=== PATIENT | female | born 1940 | race Caucasian/White ===

== ENCOUNTER 2023-09-22 18:02 | Inpatient (IN) | payer MEDICARE, BC, SELFPAY ==
[2023-09-22 09:14] VITALS: BP 133/75
[2023-09-22] MEDS: PEPCID 20 MG IV (10:10)
[2023-09-22] MEDS: OMNIPAQUE 50 ML PO (10:10)
[2023-09-22] MEDS: TORADOL 15 MG IV (10:10)
[2023-09-22 10:26] LABS: % Basophils 0.3 % (0-2); % Eosinophils 0.1 % (0-6); % Immature Granulocytes 0.3 % (0-0.5); % Lymphocytes 13.2 % (20.5-51.1); % Monocytes 5.7 % (1.7-9.3); % Neutrophils 80.4 % (42.2-75.2); Absolute Monocytes 0.4 10^3/uL (0.1-0.6); Absolute Neutrophils 6.2 10^3/uL (1.4-6.5); Hematocrit 34.4 % (37.0-47.0); Hemoglobin 11.5 g/dL (12.0-16.0); Mean Corp Hgb Conc. 33.4 g/dL (33.0-37.0); Mean Corpuscular Hgb 28.2 pg (27.0-31.0); Mean Corpuscular Volume 84.3 fL (81.0-99.0); Mean Platelet Volume 9.4 fL (7.4-10.4); Nucleated Red Blood Cells % 0 %; Platelet Count 240 10^3/uL (130-400); Red Blood Cell Count 4.08 10^6/uL (4.20-5.40); Red Cell Dist. Width 14.2 % (11.5-14.5); White Blood Cell Count 7.7 10^3/uL (4.8-10.8)
[2023-09-22 10:35] LABS: ALT (SGPT) 35 U/L (0-35); AST (SGOT) 34 U/L (14-36); Albumin 4.2 g/dl (3.5-5.0); Alkaline Phosphatase 91 U/L (38-126); Blood Urea Nitrogen 37 mg/dl (7-17); Calcium 9.3 mg/dl (8.4-10.2); Carbon Dioxide 19 mmol/L (22-30); Chloride 109 mmol/L (98-107); Glucose 99 mg/dl (70-99); Lipase 313 U/L (23-300); Potassium 4.4 mmol/L (3.5-5.1); Sodium 135 mmol/L (135-145); Total Bilirubin 0.5 mg/dl (0.2-1.3); Total Protein 7.1 g/dl (6.3-8.2); eGFR 49.24
--- NOTE | 2023-09-22 11:00 | ED.GENMED ---
History of Present Illness
<Derek Patrick Jr., PA-C - Last Filed: 09/22/23 17:39>
General
Chief Complaint: Abdominal Pain
Source: patient and family
Exam Limitations: none
Time Seen by Provider: 09/22/23 09:37
Nursing documentation reviewed up to this point in time: agreed with
Travel History
Have you had any contact with someone who has COVID-19?: No
Do you have any symptoms of coronavirus? Fever > 100 degrees, chills, cough, shortness of breath, sore throat, loss of taste or smell, muscle aches, or headache?: No
History of Present Illness
History of Present Illness:
83-year-old female with past medical history of multiple bowel obstructions in the past status post partial colectomy, ileal conduit previous stroke presenting to the emergency department today with concerns of worsening left-sided lower abdominal
pain and decreasing bowel movements but having also some intermittent loose stool over the past week or so. Has had increasing reflux symptoms denies specific vomiting has had some mild nausea has been able to tolerate by mouth.
Review of Systems
<Derek Patrick Jr., PA-C - Last Filed: 09/22/23 17:39>
Review of Systems
Allergies reviewed?: Yes
All Other Systems: ROS reviewed and negative except as documented in HPI and ROS
Phy Exam
<Derek Patrick Jr., PA-C - Last Filed: 09/22/23 17:39>
Physical Exam
Physical Exam:
GENERAL: Alert , in no apparent distress
EYE: pupils equal and reactive
NECK: Supple, no significant adenopathy.
ENT: o/p clr, mmm.
CARDIAC: Regular rate and rhythm .
LUNGS: Clear breath sounds bilaterally, no acute respiratory distress, no wheezes/rales/rhonchi
ABDOMEN: Left-sided abdominal pain no r/g, no cvat
NEUROLOGICAL: Alert and oriented, no focal neuro deficits
SKIN: Warm and dry, skin intact.
MUSCULOSKELETAL: No edema, well perfused.
PSYCH: Normal and appropriate interaction.
Course
<Derek Patrick Jr., PA-C - Last Filed: 09/22/23 17:39>
Orders/Labs/Results
Orders:
Orders
09/22/23 09:53
CT Abd/pel (oral only)-[facility] Only Urgent
Comment:
Reason For Exam: previous partial saúl, iileal conduit, left sided
Iohexol [Omnipaque] See Protocol PO NOW STA
09/22/23 09:54
Famotidine [Pepcid] 20 mg IV NOW STA
Ketorolac [Toradol] 15 mg IV NOW STA
09/22/23 10:01
Complete Blood Count/With Diff Urgent
Comprehensive Metabolic Panel Urgent
Lipase Urgent
09/22/23 15:38
Urinalysis Reflex To Culture Urgent
Date Specimen was Collected: 09/22/23
Time Specimen was Collected: 15:36
Urine Microscopic Reflex Cult Urgent
Urine Culture Urgent
RUBIA Source: U
Specimen Description:
Date Specimen was Collected: 09/22/23
Time Specimen was Collected: 15:36
09/22/23 16:45
Cefepime HCl [Maxipime] 1,000 mg IV NOW STA
09/22/23 16:54
Sterile Water [Sterile Water For Injection] 10 ml .ROUTE .[facility]-MED ONE
09/22/23 17:22
Admit/Transfer Patient As Directed
Co-Sign Provider:
Level of Care: Inpatient admission
Assign to:: Medical/Surgical
Physician / Group: Hospitalist
Diagnosis: UTI, hydronephrosis
Reason for Hospitalization: UTI, L hydronephrosis
Expected length of stay greater than two midnights?: Yes
ELOS- Estimated Length of Stay in days: 2
I certify the patient meets the requirements for IP care: Yes
Code Status As Directed
Resuscitation Status: Full Code
LevoFLOXacin 500 MG/100 ML [Levaquin] 500 mg in 100 ml IV NOW
Abnormal Lab Results
09/22/23 09/22/23
10:01 15:38
RBC 4.08 L 10^6/uL
(4.20-5.40)
Hgb 11.5 L g/dL
(12.0-16.0)
Hct 34.4 L %
(37.0-47.0)
Absolute Lymphs (auto) 1.0 L 10^3/uL
(1.2-3.4)
Neutrophils % 80.4 H %
(42.2-75.2)
Lymphocytes % 13.2 L %
(20.5-51.1)
Chloride 109 H mmol/L
(98-107)
Carbon Dioxide 19 L mmol/L
(22-30)
BUN 37 H mg/dl
(7-17)
Creatinine 1.1 H mg/dL
(0.6-1.0)
Lipase 313 H U/L
(23-300)
Ur Occult Blood Reflex Trace A
(Negative)
Leukocyte Esterase Rfl Trace A
(Negative)
Urine RBC 3-6 A /HPF
(0-2)
Urine WBC (Reflex) 11-15 A /HPF
(0-5)
Urine Bacteria (Reflex) Many A
(Negative)
09/22/23 10:01
09/22/23 10:01
Vital Signs
Initial and Last Documented VS:
Initial Vital Signs
Temp Pulse Resp BP Pulse Ox
97.8 F 97 18 133/75 100
09/22/23 09:14 09/22/23 09:14 09/22/23 09:14 09/22/23 09:14 09/22/23 09:14
Last Documented Vital Signs
Temp Pulse Resp BP Pulse Ox
97.8 F 90 16 156/68 100
09/22/23 13:33 09/22/23 13:33 09/22/23 13:33 09/22/23 13:33 09/22/23 13:33
<Eduardo Chaudhry MD - Last Filed: 09/22/23 15:54>
Orders/Labs/Results
Orders:
Orders
09/22/23 09:53
CT Abd/pel (oral only)-[facility] Only Urgent
Comment:
Reason For Exam: previous partial saúl, iileal conduit, left sided
Iohexol [Omnipaque] See Protocol PO NOW STA
09/22/23 09:54
Famotidine [Pepcid] 20 mg IV NOW STA
Ketorolac [Toradol] 15 mg IV NOW STA
09/22/23 10:01
Complete Blood Count/With Diff Urgent
Comprehensive Metabolic Panel Urgent
Lipase Urgent
09/22/23 15:38
Urinalysis Reflex To Culture Urgent
Date Specimen was Collected: 09/22/23
Time Specimen was Collected: 15:36
Urine Microscopic Reflex Cult Urgent
Urine Culture Urgent
RUBIA Source: U
Specimen Description:
Date Specimen was Collected: 09/22/23
Time Specimen was Collected: 15:36
09/22/23 16:45
Cefepime HCl [Maxipime] 1,000 mg IV NOW STA
09/22/23 16:54
Sterile Water [Sterile Water For Injection] 10 ml .ROUTE .[facility]
09/22/23 17:22
Admit/Transfer Patient As Directed
Co-Sign Provider:
Level of Care: Inpatient admission
Assign to:: Medical/Surgical
Physician / Group: Hospitalist
Diagnosis: UTI, hydronephrosis
Reason for Hospitalization: UTI, L hydronephrosis
Expected length of stay greater than two midnights?: Yes
ELOS- Estimated Length of Stay in days: 2
I certify the patient meets the requirements for IP care: Yes
Code Status As Directed
Resuscitation Status: Full Code
LevoFLOXacin 500 MG/100 ML [Levaquin] 500 mg in 100 ml IV NOW
Abnormal Lab Results
09/22/23 09/22/23
10:01 15:38
RBC 4.08 L 10^6/uL
(4.20-5.40)
Hgb 11.5 L g/dL
(12.0-16.0)
Hct 34.4 L %
(37.0-47.0)
Absolute Lymphs (auto) 1.0 L 10^3/uL
(1.2-3.4)
Neutrophils % 80.4 H %
(42.2-75.2)
Lymphocytes % 13.2 L %
(20.5-51.1)
Chloride 109 H mmol/L
(98-107)
Carbon Dioxide 19 L mmol/L
(22-30)
BUN 37 H mg/dl
(7-17)
Creatinine 1.1 H mg/dL
(0.6-1.0)
Lipase 313 H U/L
(23-300)
Ur Occult Blood Reflex Trace A
(Negative)
Leukocyte Esterase Rfl Trace A
(Negative)
Urine RBC 3-6 A /HPF
(0-2)
Urine WBC (Reflex) 11-15 A /HPF
(0-5)
Urine Bacteria (Reflex) Many A
(Negative)
09/22/23 10:01
09/22/23 10:01
Vital Signs
Initial and Last Documented VS:
Initial Vital Signs
Temp Pulse Resp BP Pulse Ox
97.8 F 97 18 133/75 100
09/22/23 09:14 09/22/23 09:14 09/22/23 09:14 09/22/23 09:14 09/22/23 09:14
Last Documented Vital Signs
Temp Pulse Resp BP Pulse Ox
97.8 F 90 16 156/68 100
09/22/23 13:33 09/22/23 13:33 09/22/23 13:33 09/22/23 13:33 09/22/23 13:33
<Derek Patrick Jr., PA-C - Last Filed: 09/22/23 17:39>
MDM/Problems Addressed
MDM/Problems Addressed:
83-year-old female presenting to the emergency department today with concerns of abdominal discomfort mainly to the left side of the abdomen with decreasing bowel movements and associated nausea. History of multiple bowel obstructions does have
reproducible tenderness to left further assessment patient was given oral contrast due to her previous colon surgery also has IV contrast allergy. CT scan showing hydronephrosis. Her doctor at [facility] was contacted and it appeared
that this is not chronic and she previously did not have hydronephrosis on most recent scan which was 9 months ago. No significant white count here creatinine level is 1.1 baseline 0.6-0.7 at baseline BUN slightly elevated. Additionally
urinalysis potentially consistent with UTI. Concerning this patient will be admitted for IV antibiotics and further monitoring. Patient was specifically requesting Levaquin as this is previously worked well for UTIs in the past. Urology was made
aware about the case as well.
<Derek Patrick Jr., PA-C - Last Filed: 09/22/23 17:39>
*Critical Care Note
Total Time (30-74mins, 75-104mins- exclusive of procedures): Not Applicable
ED Attending Note
<Derek Patrick Jr., PA-C - Last Filed: 09/22/23 17:39>
-
Portions of this chart may have been created with voice recognition software.� Occasional wrong word or��sound alike� substitutions may have occurred due to the inherent limitations of voice recognition software.
<Eduardo Chaudhry MD - Last Filed: 09/22/23 15:54>
ED Attending Note
Patient seen and examined by attending physician: Yes
I performed the substantive portion of visit, reviewed & personally made and approve the management plan that is documented in note by myself or CARISSA.: Yes
ED Attending Note:
Patient with 2 weeks of abdominal pain mostly lower abdomen with some back pain. Some history of constipation. Symptoms have progressed the last 2 weeks. No fever no vomiting.
On exam patient is nontoxic in no distress. No CVA tenderness. No distress. Abdomen is soft. Ileal conduit functioning well. Very minimal suprapubic tenderness. No rebound or guarding no mass or hernia.
Labs all reviewed and stable except for a minimal lipase elevation. CT reviewed with hydronephrosis but no obstructing kidney stone.
If the hydronephrosis is new this may be the cause of her back pain which is mostly left-sided. Could either be a nonvisual stone or reflux. Urinalysis pending. Trying to get CT reports from [facility]. Also try to contact her primary
urologist. If this has all been old and stable consideration for other etiology of her symptoms including pancreatic CA would be on the list. However this were does not warrant inpatient management and would be worked up as an outpatient.
Discharge Plan
Departure
Patient Disposition: Admit
Date of Disposition: 09/22/23
Time of Disposition: 17:39
Admit to: Med/Surg
Admit to doctor: Harvey
Presentation/result/management discussed w/ accepting MD/DO: Hospitalist
Patient with high blood pressure during this ER visit?: No
Condition: Good
Covid-19: Not Applicable
Discharge Problem:
Hydronephrosis, Acute UTI
Referrals:
Ivan Birmingham DO [Family Provider] -
Interventions
Interventions:
*Risk Screen - Suicide Last Done: 09/22/23 09:14
*General Assessment Last Done: 09/22/23 09:14
*Neglect/Abuse Screening Last Done: 09/22/23 09:14
ED- Fall Risk Assessment Last Done: 09/22/23 12:30
XR-Zwttwe-Ncsjuicqng Assessment Last Done: 09/22/23 12:30
[2023-09-22 13:33] VITALS: BP 156/68
[2023-09-22 15:52] LABS: Urine Albumin Negative (Neg - Trace); Urine Bilirubin Negative (Negative); Urine Character Clear (Clear); Urine Color Yellow; Urine Glucose Negative (Negative); Urine Ketone Negative (Negative); Urine Leukocyte Trace (Negative); Urine Nitrite Negative (Negative); Urine Occult Blood Trace (Negative); Urine Urobilinogen Negative (Neg - 1+)
[2023-09-22 15:57] LABS: Urine Squamous Cell 0-2 /LPF (Few)
[2023-09-22 15:58] LABS: Urine Bacteria Many (Negative)
--- NOTE | 2023-09-22 17:31 | HPS.HSE ---
Family Physician
-
Family Physician: Ivan Birmingham
Chief Complaint
-
L flank pain
History of Present Illness
83yo F with PMHx of CVA, hyponatremia, urinary bladder CA s/p ileal loop and bladder resection 2.5 years before this admission, done in [facility], Hx of UTI, chreonic L flank pain came with worsening L flank pain. CT found L hydronephrosis, as per
urology - due to ileal loop - might need perc nephrostomy if condition worsens. Concern for UTI.
Medical History
Past Medical History
Past Medical History: Reports Other
Additional Past Medical History:
See HPI
Past Surgical History: Reports Cholecystectomy and Other
Additional Past Surgical History:
See HPI
Social History
Tobacco: Former Smoker
Alcohol: None
Drug: None
Family History
Family History: Not pertinent
Allergies / Home Medications
Allergies reflects when Allergies were last updated in [employer].
Home Medications with original date entered in [employer]
Allergy/Medication List:
Allergies
Allergy/AdvReac Type Severity Reaction Status Date / Time
cephalexin Allergy Unknown Hives Verified 09/22/23 09:22
hyoscyamine [From Uribel] Allergy Unknown Unknown Verified 09/22/23 09:22
Iodinated Contrast Media Allergy Unknown Hives Verified 09/22/23 09:22
methenamine [From Uribel] Allergy Unknown Unknown Verified 09/22/23 09:22
methylene blue [From Uribel] Allergy Unknown Unknown Verified 09/22/23 09:22
nitrofurantoin Allergy Unknown Unknown Verified 09/22/23 09:22
[From Macrodantin]
salicylates [From Uribel] Allergy Unknown Unknown Verified 09/22/23 09:22
sodium phosphate Allergy Unknown Unknown Verified 09/22/23 09:22
[From Uribel]
sulfamethoxazole Allergy Unknown Unknown Verified 09/22/23 09:22
[From Bactrim]
trimethoprim [From Bactrim] Allergy Unknown Unknown Verified 09/22/23 09:22
Review of Systems
-
A 12 point ROS was completed and negative except as noted: Yes
: Reports See HPI
Physical Exam
Vital Signs
Vital Signs
Temp Pulse Resp BP Pulse Ox
97.8 F 90 16 156/68 100
09/22/23 13:33 09/22/23 13:33 09/22/23 13:33 09/22/23 13:33 09/22/23 13:33
Physical Exam
General: Well Developed, Well Nourished and No Apparent Distress
HEENT: NormoCephalic, Anicteric and Moist mucous membranes
Respiratory: Clear; No Wheezes, Rales or Rhonchi
Cardiac: S1/S2 and Regular Rhythm
GI: Soft, Non Tender and Non Distended
Genito-urinary: Clear Urine, Costovertebral angle tend (L) and Other (diverting urostomy bag with yellow urine)
Musculoskeletal: No Clubbing, No Cyanosis and No Edema
Skin: Warm; No Dry or Rash
Neuro: Awake, Alert, Oriented and AO x 3
Hematologic/Lymphatic: No Lymphadenopathy
Psych: Calm
Laboratory Results
-
09/22/23 10:01
09/22/23 10:01
Laboratory Results
Total Bilirubin 0.5 mg/dl (0.2-1.3) 09/22/23 10:01
AST 34 U/L (14-36) 09/22/23 10:01
ALT 35 U/L (0-35) 09/22/23 10:01
Alkaline Phosphatase 91 U/L (38-126) 09/22/23 10:01
Lipase 313 U/L (23-300) H 09/22/23 10:01
Data Reviewed
-
Diagnostic Radiology: Report Reviewed by me
Impression/Plan
-
#UTI, complicated with L hydro
#Hx of urinary bladder CA s/p resection and ileal loop
Hx of Levaquin for previous UTI without documentation of infection. WIll start Merrem (Keflex alergy) to cover Pseudomonas pecning Ucx and Bcx
Utology consult
If worsening Cr or infection - IRAD for perc nephrostomy
#Cr elevation vs JAREN
Unclear baseline
IVF and follow BMP
#Diarrhea with PMHx of chronic constipation
Can be 2/2 laxatives
with PMHx of Abx - check for c.diff
Probiotics
#Hx of CVA
cont ASA
#Chronic hyponatremia
follow Sodium
continue previously established as outpatient fluid restriction of 50Oz to limit free water
Use NS for hydration
DVT ppx hep
Full code
Encounter reuired high level of complexity for medical decision making
[2023-09-22] MEDS: LEVAQUIN 100 IV (17:38)
[2023-09-22 17:43] VITALS: BP 142/63
--- NOTE | 2023-09-22 18:44 | EDRN ---
Patient started to have red cheeks during levaquin infusion. Levaquin infusion stopped. Patient denies CP or SOB. No systemic rash. TT Dr. Barnett who agreed to have it stopped.
[2023-09-22 21:25] VITALS: BMI 17.2
[2023-09-22] MEDS: NSS 1000 IV (22:14)
[2023-09-22 22:16] VITALS: BP 109/58
[2023-09-22] MEDS: TYLENOL 650 MG PO (22:39)
[2023-09-22 23:00] VITALS: BP 122/56; BMI 16.9
[2023-09-22] MEDS: MERREM 500 MG IV (23:46)
[2023-09-22] MEDS: STERILE WATER FOR INJECTION 10 ML IV (23:46)
[2023-09-22] MEDS: HEPARIN 5000 UNITS SC (23:47)
[2023-09-23] MEDS: MORPHINE SULFATE 1 MG IV ×2 (03:05→21:27)
--- NOTE | 2023-09-23 03:46 | PTCARENOTE ---
2300 Received patient , Patient walked form stretcher to bed with standby assist. Patient tolerated well. Vital signs taken, Patient oriented to room . Patient given a Rush bag for her urostomy bag for overnight, . All needs are currently met.
Will continue to monitor patient .
[2023-09-23 06:00] VITALS: BMI 16.9
[2023-09-23] MEDS: MERREM 500 MG IV ×3 (06:03→21:27)
[2023-09-23] MEDS: STERILE WATER FOR INJECTION 10 ML IV ×3 (06:03→21:27)
[2023-09-23 07:00] VITALS: BP 150/76
[2023-09-23 07:47] LABS: % Basophils 0.4 % (0-2); % Eosinophils 0.8 % (0-6); % Immature Granulocytes 0.2 % (0-0.5); % Lymphocytes 25.3 % (20.5-51.1); % Monocytes 8.2 % (1.7-9.3); % Neutrophils 65.1 % (42.2-75.2); Absolute Lymphocytes 1.2 10^3/uL (1.2-3.4); Absolute Monocytes 0.4 10^3/uL (0.1-0.6); Absolute Neutrophils 3.2 10^3/uL (1.4-6.5); Hemoglobin 9.5 g/dL (12.0-16.0); Mean Corp Hgb Conc. 32.8 g/dL (33.0-37.0); Mean Corpuscular Hgb 28.2 pg (27.0-31.0); Mean Corpuscular Volume 86.1 fL (81.0-99.0); Mean Platelet Volume 9.7 fL (7.4-10.4); Nucleated Red Blood Cells % 0 %; Platelet Count 202 10^3/uL (130-400); Red Blood Cell Count 3.37 10^6/uL (4.20-5.40); Red Cell Dist. Width 14.1 % (11.5-14.5); White Blood Cell Count 4.9 10^3/uL (4.8-10.8)
[2023-09-23 08:30] LABS: ALT (SGPT) 28 U/L (0-35); AST (SGOT) 27 U/L (14-36); Albumin 3.1 g/dl (3.5-5.0); Alkaline Phosphatase 74 U/L (38-126); Blood Urea Nitrogen 38 mg/dl (7-17); Calcium 8.7 mg/dl (8.4-10.2); Carbon Dioxide 19 mmol/L (22-30); Chloride 108 mmol/L (98-107); Estimated Creatinine Clearance 28 ml/min; Glucose 82 mg/dl (70-99); Potassium 4.3 mmol/L (3.5-5.1); Sodium 135 mmol/L (135-145); Total Bilirubin 0.4 mg/dl (0.2-1.3); Total Protein 5.6 g/dl (6.3-8.2); eGFR 49.24
[2023-09-23] MEDS: VISBIOME 1 CAP PO (09:05)
[2023-09-23] MEDS: LOW STRENGTH ASPIRIN 81 MG PO (09:05)
[2023-09-23] MEDS: HEPARIN 5000 UNITS SC ×3 (09:07→23:37)
[2023-09-23] MEDS: LIPITOR 40 MG PO (09:12)
--- NOTE | 2023-09-23 11:26 | W.PN.URO.CBU ---
Today's Communication / Plan
-
Will send urine for cytology
Consider CT urogram if patient worsens clinically
Will notify with Dr. Smith of left hydronephrosis
Assessment / Plan
-
History of bladder cancer s/p radical cystectomy with ileal loop urine diversion 2020
Left hydronephrosis of unclear etiology and unknown duration
Left flank/back pain
Lower abdominal/SP pain and constipation
Diagnosis
-
Date of Service: September 23, 2023
-
Patient Diagnosis:
Longstanding history of recurrent non-invasive high grade bladder cancer ultimately led to radical cystectomy with ileal loop diversion 2020 at [facility] (Dr. Smith)
Patient received no neoadjuvant or adjuvant chemotherapy
She has had the occasional complicated UTI with associated flan pain
She was admitted here 09/22/23 with a 2 week history of lower abdominal and left flank pain: much diminished in the last 2-3 days
---
CT scan w/o IV contrast reveals left hydronephrosis with proximal ureteral dilation. Mid to distal left ureter and ileal conduit not well visualized (images personally reviewed)
Subjective
-
c/o SP discomfort today
Little left flank/back pain
Objective
-
Vital Signs
Temp Pulse Resp BP Pulse Ox
97.7 F 82 18 150/76 99
09/23/23 07:00 09/23/23 07:00 09/23/23 07:00 09/23/23 07:00 09/23/23 07:00
Intake and Output
09/22/23 09/23/23 09/24/23
06:59 06:59 06:59
Intake Total 240 / 240
Output Total 600 / 600
Balance -360 / -360
Intake:
Oral fluids 240 / 240
Output:
Urostomy output 600 / 600
Laboratory Results
09/23/23 06:52
09/23/23 06:52
Review of Systems
-
Constitutional: No Symptoms
Respiratory: No Symptoms
Cardiac: No Symptoms
Abdomen/GI: Abdominal Pain
: No Symptoms
Neurological: No Symptoms
Physical Exam
-
General - well developed, well nourished, no acute distress
Abdomen - soft, non-tender, stoma healthy with clear urine in urostomy
Skin - warm & dry with no rash
Neuro - AOx3, no motor deficits
[2023-09-23] MEDS: NSS 1000 IV (12:54)
--- NOTE | 2023-09-23 13:03 | W.PN.HOSP.TC ---
Today's Communication/Plan
-
Continue antibiotics
Wait for cultures
Assessment / Plan
Assessment / Plan
83-year-old female with history of urinary bladder cancer with ileal loop diversion and bladder resection 2 and half years ago at [place] admitted with left flank pain. CT showed left hydronephrosis
CT abdomen and pelvis moderate to severe left hydro, left ureter not well-seen. Atypical soft tissue depression anterior pelvis etiology unclear. Postcholecystectomy associated mild intrahepatic biliary dilatation
CVS: S1-S2 normal
Chest: CTA B/L
Abdomen: Soft, NT / Bowel sounds present, ileal conduit
Extremities: No edema, normal pulses
INSURANCE RISK MANAGER: Non focal exam
# UTI with left hydronephrosis
History of high-grade bladder cancer with resection and ileal loop diversion 2020 at [place] sees
Did not get any chemotherapy
Started on meropenem-await cultures
Urology has been consulted if creatinine is worse may need percutaneous nephrostomy
# Anemia- iron studies un remarkable.
Likely malignancy related
# Acute kidney injury
IV fluids and follow creatinine
Possible one kidney being affected is causing it to rise.
# Diarrhea with history of chronic constipation
Discussed about getting a colonoscopy as outpatient.
She stated that she saw 2 GI doctors who both said that she is at high risk for colonoscopy given her urology surgery
Consider Virtual as OP-Discussed.
Daily MiraLAX discussed with the patient- she takes
Will give a dose of Senokot tonight
# History of CVA-continue aspirin, statin
# Chronic hyponatremia
Better
#DVT prophylaxis-subcutaneous heparin
#Full code
Discussed with nursing
Discussed with daughters at bedside
Anticipated Discharge: 24 - 48 hours
Subjective/Interval History
-
Date of Service: September 23, 2023
Objective Data
-
Labs:
Laboratory Results
09/23/23
06:52
WBC 4.9
Hgb 9.5 L
Hct 29.0 L
Plt Count 202
Sodium 135
Potassium 4.3
Chloride 108 H
Carbon Dioxide 19 L
BUN 38 H
Creatinine 1.1 H
Glucose 82
Calcium 8.7
Total Bilirubin 0.4
AST 27
ALT 28
Alkaline Phosphatase 74
Vital Signs:
Vital Signs
Temp Pulse Resp BP Pulse Ox
97.7 F 82 18 150/76 99
09/23/23 07:00 09/23/23 07:00 09/23/23 07:00 09/23/23 07:00 09/23/23 07:00
I&O
09/22/23 09/23/23 09/24/23
06:59 06:59 06:59
Intake Total 240 / 240
Output Total 600 / 600
Balance -360 / -360
[2023-09-23 13:47] LABS: Iron 71 ug/dl (37-170)
[2023-09-23 13:52] LABS: Percent Saturation 24 % (20-50); Total Iron Binding Capacity 286 ug/dl (265-497)
[2023-09-23 14:29] LABS: Ferritin 40.9 ng/ml (11.1-264.0)
[2023-09-23 14:44] LABS: Vitamin B12 320 pg/ml (239-931)
[2023-09-23 15:00] VITALS: BP 133/66
[2023-09-23 15:47] LABS: Urine Albumin Negative (Neg - Trace); Urine Bilirubin Negative (Negative); Urine Character Clear (Clear); Urine Color Straw; Urine Glucose Negative (Negative); Urine Ketone Negative (Negative); Urine Leukocyte Trace (Negative); Urine Nitrite Negative (Negative); Urine Occult Blood Trace (Negative); Urine Urobilinogen Negative (Neg - 1+)
[2023-09-23 16:10] LABS: Urine Bacteria Few (Negative); Urine Red Blood Cell 0-2 /HPF (0-2); Urine Squamous Cell 0-2 /LPF (Few); Urine White Cell 16-20 /HPF (0-5)
--- NOTE | 2023-09-23 16:25 | CM ---
field reimbursement manager reviewed patient's chart and met with patient and patient lives alone in multi level home with 1 step then 5 steps to enter, patient is independent with adl's and ambulation, no dme, patient drives, patient has a prescription plan and
patient uses [facility] pharmacy.
PCP: Dr Birmingham
Plan; Home when stable, no needs
[2023-09-23] MEDS: SENOKOT 17.1999999999999993 MG PO (21:27)
[2023-09-23] MEDS: MELATONIN 5 MG PO (21:28)
[2023-09-23 23:00] VITALS: BP 115/69
[2023-09-24] MEDS: STERILE WATER FOR INJECTION 10 ML IV ×3 (05:35→21:56)
[2023-09-24] MEDS: MERREM 500 MG IV ×3 (05:36→21:56)
[2023-09-24 07:00] VITALS: BP 147/72
[2023-09-24 07:11] LABS: Hematocrit 31.6 % (37.0-47.0); Hemoglobin 10.3 g/dL (12.0-16.0); Mean Corp Hgb Conc. 32.6 g/dL (33.0-37.0); Mean Corpuscular Hgb 27.8 pg (27.0-31.0); Mean Corpuscular Volume 85.4 fL (81.0-99.0); Mean Platelet Volume 9.8 fL (7.4-10.4); Platelet Count 199 10^3/uL (130-400); Red Cell Dist. Width 14.2 % (11.5-14.5); White Blood Cell Count 6.7 10^3/uL (4.8-10.8)
[2023-09-24 07:29] LABS: Blood Urea Nitrogen 39 mg/dl (7-17); Calcium 8.9 mg/dl (8.4-10.2); Carbon Dioxide 21 mmol/L (22-30); Chloride 110 mmol/L (98-107); Estimated Creatinine Clearance 31 ml/min; Glucose 91 mg/dl (70-99); Potassium 4.3 mmol/L (3.5-5.1); Sodium 135 mmol/L (135-145); eGFR 55.21
[2023-09-24] MEDS: LIPITOR 40 MG PO (08:13)
[2023-09-24] MEDS: LOW STRENGTH ASPIRIN 81 MG PO (08:13)
[2023-09-24] MEDS: HEPARIN 5000 UNITS SC ×2 (08:13→16:09)
[2023-09-24] MEDS: VISBIOME 1 CAP PO (08:13)
--- NOTE | 2023-09-24 09:22 | W.PN.HOSP.TC ---
Today's Communication/Plan
-
bowel regimen
Assessment / Plan
Assessment / Plan
83-year-old female with history of urinary bladder cancer with ileal loop diversion and bladder resection 2 and half years ago at [place] admitted with left flank pain. CT showed left hydronephrosis
CT abdomen and pelvis moderate to severe left hydro, left ureter not well-seen. Atypical soft tissue depression anterior pelvis etiology unclear. Postcholecystectomy associated mild intrahepatic biliary dilatation
CVS: S1-S2 normal
Chest: CTA B/L
Abdomen: Soft, Left Flank and CVA discomfort, Bowel sounds present, ileal conduit
Extremities: No edema, normal pulses
SAFETY ANALYST: Non focal exam
C/O Suprapubic and left sided pain. No right sided pain.
# UTI with left hydronephrosis
History of high-grade bladder cancer with resection and ileal loop diversion 2020 at [place] sees
Did not get any chemotherapy
Started on meropenem-await cultures
Urology has been consulted if creatinine is worse may need percutaneous nephrostomy
She has a lot more pain.
?Needs to address the [place]?
# Anemia- iron studies un remarkable.
Likely malignancy related
# Acute kidney injury
Better
# Diarrhea with history of chronic constipation
Discussed about getting a colonoscopy as outpatient.
She stated that she saw 2 GI doctors who both said that she is at high risk for colonoscopy given her urology surgery
Consider Virtual as OP-Discussed.
Daily MiraLAX discussed with the patient- she takes
No BM
She doesn't want to take Milk of Mag now
# History of CVA-continue aspirin, statin
# Chronic hyponatremia
Better
#DVT prophylaxis-subcutaneous heparin
#Full code
Discussed with nursing at bed side
Discussed with daughters at bedside
Anticipated Discharge: Within 24 hours
Subjective/Interval History
-
Date of Service: September 24, 2023
Objective Data
-
Labs:
Laboratory Results
09/24/23
06:38
WBC 6.7
Hgb 10.3 L
Hct 31.6 L
Plt Count 199
Sodium 135
Potassium 4.3
Chloride 110 H
Carbon Dioxide 21 L
BUN 39 H
Creatinine 1.0
Glucose 91
Calcium 8.9
Vital Signs:
Vital Signs
Temp Pulse Resp BP Pulse Ox
97.8 F 80 16 147/72 98
09/24/23 07:00 09/24/23 07:00 09/24/23 07:00 09/24/23 07:00 09/24/23 07:00
I&O
09/23/23 09/24/23 09/25/23
06:59 06:59 06:59
Intake Total 240 / 240 1894 / 1894
Output Total 600 / 600 1300 / 1300
Balance -360 / -360 594 / 594
[2023-09-24] MEDS: PEPCID 20 MG IV (10:00)
[2023-09-24 12:54] VITALS: BMI 16.9
[2023-09-24 15:00] VITALS: BP 111/90
--- NOTE | 2023-09-24 15:29 | CM ---
Reviewed the chart notes and spoke with the patient at the bedside. IMM signed and placed on the chart. CM continues to be available to patient/family and is monitoring medical plan for needs at discharge.
[2023-09-24] MEDS: MELATONIN 5 MG PO (21:56)
[2023-09-24] MEDS: MIRALAX 17 GRAMS PO (21:56)
[2023-09-24] MEDS: SENOKOT PO (21:57)
[2023-09-24] MEDS: SENOKOT 17.1999999999999993 MG PO (22:25)
[2023-09-24 23:14] VITALS: BP 130/65
[2023-09-25] MEDS: HEPARIN 5000 UNITS SC ×3 (00:21→17:11)
[2023-09-25] MEDS: MERREM 500 MG IV (05:11)
[2023-09-25] MEDS: STERILE WATER FOR INJECTION 10 ML IV (05:11)
[2023-09-25 07:12] VITALS: BP 142/69
[2023-09-25] MEDS: LIPITOR 40 MG PO (08:53)
[2023-09-25] MEDS: VISBIOME 1 CAP PO (08:53)
[2023-09-25] MEDS: LOW STRENGTH ASPIRIN 81 MG PO (08:54)
[2023-09-25] MEDS: TYLENOL 650 MG PO (08:54)
[2023-09-25] MEDS: PEPCID 20 MG IV (08:55)
[2023-09-25 08:59] LABS: Blood Urea Nitrogen 41 mg/dl (7-17); Calcium 9.5 mg/dl (8.4-10.2); Carbon Dioxide 20 mmol/L (22-30); Chloride 109 mmol/L (98-107); Estimated Creatinine Clearance 26 ml/min; Glucose 102 mg/dl (70-99); Potassium 4.1 mmol/L (3.5-5.1); Sodium 136 mmol/L (135-145); eGFR 44.36
--- NOTE | 2023-09-25 09:09 | W.PN.URO.CBU ---
Today's Communication / Plan
-
Discharge home with plans for follow up with Dr. Smith
Discussed with hospitalists
Assessment / Plan
-
History of bladder cancer s/p radical cystectomy with ileal loop urine diversion 2020
Left hydronephrosis of unclear etiology and unknown duration
Left flank/back pain improved
Lower abdominal/SP pain and improved constipation
Diagnosis
-
Date of Service: September 25, 2023
-
Patient Diagnosis:
Longstanding history of recurrent non-invasive high grade bladder cancer ultimately led to radical cystectomy with ileal loop diversion 2020 at [facility] (Dr. Simth)
Patient received no neoadjuvant or adjuvant chemotherapy
She has had the occasional complicated UTI with associated flan pain
She was admitted here 09/22/23 with a 2 week history of lower abdominal and left flank pain: much diminished in the last 2-3 days
---
CT scan w/o IV contrast reveals left hydronephrosis with proximal ureteral dilation. Mid to distal left ureter and ileal conduit not well visualized (images personally reviewed)
Subjective
-
Far more comfortable today
Left flank discomfort tolerable
Objective
-
Vital Signs
Temp Pulse Resp BP Pulse Ox
97.8 F 66 16 130/65 100
09/24/23 23:14 09/24/23 23:14 09/24/23 23:14 09/24/23 23:14 09/24/23 23:14
Intake and Output
09/24/23 09/25/23 09/26/23
06:59 06:59 06:59
Intake Total 1894 / 1894 1560 / 1560
Output Total 1300 / 1300 1850 / 1850
Balance 594 / 594 -290 / -290
Intake:
Oral fluids 1350 / 1350 1560 / 1560
IV fluids (Total) 544 / 544
Output:
Urine, Voided 1150 / 1150
Urostomy output 1300 / 1300 700 / 700
Other:
Number of approximated MODERATE 6
amounts of urine
Laboratory Results
09/24/23 06:38
09/25/23 08:09
Review of Systems
-
Constitutional: No Symptoms
Respiratory: No Symptoms
Cardiac: No Symptoms
Abdomen/GI: Abdominal Pain and Constipated
: No Symptoms
Neurological: No Symptoms
Physical Exam
-
General - well developed, well nourished, no acute distress
Abdomen - soft, non-tender, positive bowel sounds, no CVAT
Skin - warm & dry with no rash
Neuro - AOx3, no motor deficits
[2023-09-25] MEDS: LEVAQUIN 250 MG PO (14:33)
--- NOTE | 2023-09-25 14:36 | W.PN.HOSP.TC ---
Addendum entered and electronically signed by Davie Hutchins MD 09/26/23 20:13:
moderate protein calorie malnutrition
Original Note:
Today's Communication/Plan
-
Await call back from [facility]
Assessment / Plan
Assessment / Plan
83-year-old female with history of urinary bladder cancer with ileal loop diversion and bladder resection 2 and half years ago at [place] admitted with left flank pain. CT showed left hydronephrosis
CT abdomen and pelvis moderate to severe left hydro, left ureter not well-seen. Atypical soft tissue depression anterior pelvis etiology unclear. Postcholecystectomy associated mild intrahepatic biliary dilatation
CVS: S1-S2 normal
Chest: CTA B/L
Abdomen: Soft, Left Flank and CVA discomfort, Bowel sounds present, ileal conduit
Extremities: No edema, normal pulses
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
Says she has no pain
# UTI with left hydronephrosis
History of high-grade bladder cancer with resection and ileal loop diversion 2020 at [facility] sees
Did not get any chemotherapy
Antibiotics changed to Levaquin 250 daily according to culture
Discussed with Dr. Shah no plans for any procedure here.
Patient's pain is better.
I have left a message with at [facility] to discuss
I have made the patient and family aware that she should continue with antibiotics until hydronephrosis is addressed by her urologist
# Anemia- iron studies un remarkable.
Likely malignancy related
# Acute kidney injury
Unclear if the patient has CKD. I have left a message for her urologist to find out what her baseline creatinine is.
# Diarrhea with history of chronic constipation
Discussed about getting a colonoscopy as outpatient.
She stated that she saw 2 GI doctors who both said that she is at high risk for colonoscopy given her urology surgery
Consider Virtual as OP-Discussed.
Daily MiraLAX discussed with the patient- she takes
Had a bowel movement last night and also today.
# History of CVA-continue aspirin, statin
# Chronic hyponatremia
Normalized
#DVT prophylaxis-subcutaneous heparin
#Full code
Discussed with nursing
Discussed with Dr. Shah
Discussed with granddaughter at bedside
Left a message for Florentino Tadeo
Anticipated Discharge: Today
Subjective/Interval History
-
Date of Service: September 25, 2023
Objective Data
-
Labs:
Laboratory Results
09/25/23
08:09
Sodium 136
Potassium 4.1
Chloride 109 H
Carbon Dioxide 20 L
BUN 41 H
Creatinine 1.2 H
Glucose 102 H
Calcium 9.5
Vital Signs:
Vital Signs
Temp Pulse Resp BP Pulse Ox
99.2 F 82 16 142/69 97
09/25/23 07:12 09/25/23 07:12 09/25/23 07:12 09/25/23 07:12 09/25/23 07:12
I&O
09/24/23 09/25/23 09/26/23
06:59 06:59 06:59
Intake Total 1894 / 1894 1560 / 1560
Output Total 1300 / 1300 1850 / 1850
Balance 594 / 594 -290 / -290
[2023-09-25 15:15] VITALS: BP 115/63
--- NOTE | 2023-09-25 15:20 | W.PN.UPDATE ---
Update Note
Progress Note Update
Got a call from [facility] from who is a resident of .
He started that pt's Creat was 0.6 in January of 2023.
He will get back to me after he speaks to
--- NOTE | 2023-09-25 15:39 | PN.CDI ---
CDI
- -
CDI:
Physician Documentation Request
Admit Date: 09/22/23 18:02
Dear Doctor Liset,
09/23 RD note states 'Pt meets criteria for moderate protein calorie malnutrition of SEC with > 7.5% weight loss x 3 months, mod loss of subcutaneous fat (tricepts, rib cage) and mod loss of muscle (clavicle, acromion process)'
Based on the information, which of the following most accurately represents the patient's nutritional status?
Moderate Malnutrition
No nutritional deficiency
Other (please specify)
[place] Criteria ([facility] Hospitalist 2017)
2 or more criteria must be present for either
non severe or severe malnutrition
Note that the criteria differs related to the
presence of an acute or chronic illness
Acute Illness Chronic Illness
Energy Intake Non Severe: <75% for >7 days Non Severe: <75% for >1 month
Severe: <50% for >5 days Severe: <75% for >1 month
Weight Loss Non Severe: 1-2% over 1 week Non Severe: 5% over 1 month
5% over 1 month 7.5% over 3 months
7.5% over 3 months 10% over 6 months
1 year N/A 20% over 1 year
Severe: >2% over 1 week Severe: >5% over 1 month
>5% over 1 month >7.5% over 3 months
>7.5% over 3 months >10% over 6 months
1 year N/A >20% over 1 year
Body Fat Non Severe: Mild Decrease Non Severe: Mild Loss
Severe: Moderate Decrease Severe: Severe Loss
Muscle Mass Non Severe: Mild Decrease Non Severe: Mild Loss
Severe: Moderate Decrease Severe: Severe Loss
Fluid Accumulation Non Severe: Mild Accumulation Non Severe: Mild Accumulation
Severe: Moderate to severe Severe: Moderate to severe
accumulation accumulation
Reduced Railroad Surveyor Strength Non Severe: N/A Non Severe: N/A
Severe: Measurably reduced Severe: Measurably reduced
Additional criteria that can be used to Determine if Mild or Moderate Malnutrition (Merck Manual 2018)
Mild Moderate Severe
Albumin gm/dl <3.0 gm/dl <2.5 gm/dl <2.0 gm/dl
Pre Albumin mg/dl <15 gm/dl <10 mg/dl <5.0 mg/dl
BMI <18.5 <17 <16
Use of terms such as suspected, likely, concern for, or probable (associated with a specific diagnosis that is being evaluated, monitored, or treated as if it exists) are acceptable and can be coded in the inpatient setting, when documented at the
time of discharge.
Thank you,
Margaret Mayo RN, BSN
CDI Specialist
tiger text
Please use your independent medical judgment in providing your response.
--- NOTE | 2023-09-25 15:55 | CM ---
Patient seen bedside with family, reports no new concerns, awaiting confirmation for discharge. CM will continue to follow for discharge planning needs.
Plan; home no needs.
[2023-09-25 17:18] LABS: TSH 3.61 uIU/ml (0.47-4.68)
--- NOTE | 2023-09-25 17:34 | W.PN.UPDATE ---
Update Note
Progress Note Update
's resident called back and confirmed , okay for discharge today on 10 more days of AB. I requested that she be seen soon with the [facility]. They are also aware about her creatinine. Will ask the floor to make a CD of the CT scan for pt to
take with her.
Discharge cordination time 39 min
Daughter and pt made aware about the same.
--- NOTE | 2023-09-25 17:37 | W.DS.TRANS ---
Addendum entered and electronically signed by Davie Hutchins MD 09/26/23 08:45:
Dictation- [id number]
Original Note:
DC Summary - Oral Hygienist
-
Discharge Instructions:
Discharge Diagnosis/Procedures Klebsiella UTI, acute kidney injury,
constipation, left-sided hydronephrosis, anemia,
history of CVA
Diet As tolerated
Activity As tolerated
Driving Restrictions As prior to admission
Blood Work BMP 3 days, B 12 level 1 month
Other Services VN
Instructions:
Stand-Alone Forms:
Changes to Home Medications: Yes
Discharge Medications:
DC Medications w/original date entered in [facility]
aspirin 81 mg chewable tablet 81 mg PO DAILY Heart Disease/Condition 09/22/23
atorvastatin 40 mg tablet 40 mg PO DAILY High Cholesterol 09/22/23
povidone (PF) 0.5 % eye drops (iVizia (PF)) 1 drp ophthalmic (eye) PRN PRN eye irritation 09/22/23
varenicline 0.03 mg/spray nasal spray (Tyrvaya) 1 spray intranasal BID DRY EYE DISEASE 09/22/23
cyanocobalamin (vitamin B-12) 1,000 mcg capsule 1,000 mcg PO DAILY Borderline B12 level #30 caps 09/25/23
levofloxacin 250 mg tablet 250 mg PO DAILY Infection #10 tabs 09/25/23
polyethylene glycol 3350 17 gram oral powder packet (Miralax) 17 g PO HS Constipation #0 ea 09/25/23
Home Medication Changes
new
B12
Levaquin
Pending Results: No
== END 2023-09-25 18:44 | disposition home or self-care (01) | DRG 690 ==
LOC: 4 WEST ACU 18:02
PROVIDERS: Physician Assistant; ADMITTING PHYSICIAN Internal Medicine; ATTENDING PHYSICIAN Hospitalist; CONSULT PHYSICIAN Specialist; EMERGENCY PHYSICIAN Emergency Medicine; FAMILY PHYSICIAN Family Medicine
DX: N13.6 Pyonephrosis (principal); E87.1 Hypo-osmolality and hyponatremia; E44.0 Moderate protein-calorie malnutrition; Z68.1 Body mass index [BMI] 19.9 or less, adult; N17.9 Acute kidney failure, unspecified; K59.00 Constipation, unspecified; D64.9 Anemia, unspecified; B96.1 Klebsiella pneumoniae [K. pneumoniae] as the cause of diseases classified elsewhere; Z86.73 Personal history of transient ischemic attack (TIA), and cerebral infarction without residual deficits; Z85.51 Personal history of malignant neoplasm of bladder; Z88.1 Allergy status to other antibiotic agents
CPT/HCPCS: 74176; 80048; 80053; 81003; 81015; 82248; 82607; 82728; 83540; 83550; 83690; 83735; 84443; 85025; 85027; 87040; 87077; 87086; 87186; 88112; 96361; 96365; 96375; 99284